=== PATIENT | female | born 2000 | race Caucasian/White ===

== ENCOUNTER 2023-02-26 09:18 | Emergency (ER) | payer BC ==
[~2023-02-26] VITALS: Ht 167.6 cm; Wt 79.4 kg
[2023-02-26] MEDS ORDERED: AMOX/CLAVULANATE 875 MG TABLET PO ONE (10:00)
[2023-02-26] MEDS ORDERED: DEXAMETHASONE SOD PHOSPHATE 4 MG/ML VIAL IM ONE (10:00)
[2023-02-26] MEDS ORDERED: LIDOCAINE VISCOUS 2% UD 15 ML UDC MM ONE (10:00)
[2023-02-26] MEDS ORDERED: IBUP-1957 PO (10:01)
[2023-02-26] MEDS ORDERED: AMOX-430 PO (10:01)
--- NOTE | 2023-02-26 10:09 | NUR ---
LEFT THROAT SWAB DONE.
[2023-02-26] MEDS ORDERED: DEXAMETHASONE SOD PHOSPHATE 10 MG/ML VIAL ONE (10:18)
[2023-02-26] MEDS ORDERED: LIDOCAINE VISCOUS 2% UD 15 ML UDC ONE (10:18)
[2023-02-26] MEDS ORDERED: AMOX/CLAVULANATE 875 MG TABLET ONE (10:18)
--- NOTE | 2023-02-26 10:44 | NUR ---
Patient discharged to home in stable condition. Written and verbal after care instructions given. Patient verbalizes understanding of instruction.
[2023-02-26 10:46] VITALS: BP 118/71
== END 2023-02-26 10:46 | disposition home or self-care (01) ==
LOC: ER 09:25
DX: J36 Peritonsillar abscess (principal); J45.909 Unspecified asthma, uncomplicated; Z79.899 Other long term (current) drug therapy; Z60.2 Problems related to living alone
CPT/HCPCS: 99283; 96372; 87880; J1100; 86403-TC

== ENCOUNTER 2023-03-08 09:47 | Emergency (ER) | payer BC ==
[~2023-03-08] VITALS: Ht 167.6 cm; Wt 65.8 kg
[~2023-03-08 09:47] MED LIST: AMOX-430 PO; IBUP-1957 PO
[2023-03-08] MEDS ORDERED: DEXAMETHASONE SOD PHOSPHATE 10 MG/ML VIAL ONE (10:26)
[2023-03-08] MEDS ORDERED: AMOX-430 PO (10:26)
[2023-03-08] MEDS ORDERED: KETOROLAC TROMETHAMINE 15 MG/ML VIAL ONE (10:26)
[2023-03-08] MEDS: DEXAMETHASONE SOD PHOSPHATE 10 MG/ML VIAL IM ONE (10:30)
[2023-03-08] MEDS: KETOROLAC TROMETHAMINE INJ 30 MG/ML VIAL IM ONE (10:31)
[2023-03-08 10:43] VITALS: BP 110/66
--- NOTE | 2023-03-08 10:43 | NUR ---
Patient discharged to home in stable condition. Written and verbal after care instructions given. Patient verbalizes understanding of instruction.
== END 2023-03-08 10:43 | disposition home or self-care (01) ==
LOC: ER 09:51
DX: J02.9 Acute pharyngitis, unspecified (principal); J45.909 Unspecified asthma, uncomplicated; Z60.2 Problems related to living alone
CPT/HCPCS: 99284; 96372 ×2; J1100; J1885

== ENCOUNTER → 2024-05-20 | Emergency (ER) | payer BC ==
[~2024-05-20] VITALS: Ht 162.6 cm; Wt 68.0 kg
[~2024-05-20] MED LIST changes: +LORAZEPAM 0.5 MG TABLET ONE
[2024-05-20 20:22] VITALS: BP 128/78; TEMP 98.6; O2SAT 98
[2024-05-20] MEDS: LORAZEPAM 1 MG TABLET PO ONE (20:51)
== END | disposition home or self-care (01) ==
LOC: ER 20:11
DX: J45.909 Unspecified asthma, uncomplicated (principal); R06.00 Dyspnea, unspecified; Z60.2 Problems related to living alone
CPT/HCPCS: 71045-TC